=== PATIENT | male | born 1980 | race African-American/Black ===

== ENCOUNTER 2018-02-24 10:59 | Emergency (ER) | payer BC | END 2018-02-24 13:02 | disposition home or self-care (01) | LOC: FTE 10:59 | DX: J32.9 Chronic sinusitis, unspecified (principal) | CPT/HCPCS: 99284; Z7502 ==

== ENCOUNTER 2018-03-22 11:45 | Emergency (ER) | payer BC | END 2018-03-22 12:22 | disposition home or self-care (01) | LOC: FTE 11:45 | DX: R03.0 Elevated blood-pressure reading, without diagnosis of hypertension (principal) | CPT/HCPCS: 99282; Z7502 ==